=== PATIENT | female | born 1990 | race Caucasian/White ===

== ENCOUNTER 2016-08-05 | Outpatient (CLI) | payer OTHER ==
[2016-08-05 13:45] LABS: HEMOGLOBIN 10.3 gm/dl (12.3-15.3); RED BLOOD COUNT 3.72 M/UL (4.00-5.10); WHITE BLOOD COUNT 10.3 K/UL (4.5-11.0)
== END 2016-08-05 14:28 | disposition home or self-care (01) ==
PROVIDERS: Obstetrics & Gynecology
DX: O34.219 Maternal care for unspecified type scar from previous cesarean delivery (principal); Z3A.00 Weeks of gestation of pregnancy not specified
CPT/HCPCS: 36415; 80307; 81001; 85025; J7120

== ENCOUNTER 2016-08-06 09:15 | Inpatient (IN) | payer OTHER ==
[2016-08-07 03:13] LABS: HEMOGLOBIN 9.9 gm/dl (12.3-15.3)
[2016-08-09] MEDS ORDERED: IBUPROFEN600 MG PO (10:48)
[2016-08-09] MEDS ORDERED: NORCO 10-325 T1 EACH PO (10:49)
[2016-08-09] MEDS ORDERED: COLACE 100MG C100 MG PO (10:49)
== END 2016-08-09 17:39 | disposition home or self-care (01) | DRG 765 ==
LOC: OB 11:12
PROVIDERS: ADMIT Obstetrics & Gynecology
PROC: 3E0R3CZ (ICD-10-PCS; 2016-08-06)
PROC: 10D00Z1 Extraction of Products of Conception, Low, Open Approach (ICD-10-PCS; principal; 2016-08-06 14:30)
PROC: 3E0234Z Introduction of Serum, Toxoid and Vaccine into Muscle, Percutaneous Approach (ICD-10-PCS; 2016-08-07)
DX: O34.219 Maternal care for unspecified type scar from previous cesarean delivery (principal); O99.324 Drug use complicating childbirth; F11.20 Opioid dependence, uncomplicated; N85.8 Other specified noninflammatory disorders of uterus; O99.334 Smoking (tobacco) complicating childbirth; F17.200 Nicotine dependence, unspecified, uncomplicated; Z3A.39 39 weeks gestation of pregnancy; Z37.0 Single live birth; O99.344 Other mental disorders complicating childbirth; F32.9 Major depressive disorder, single episode, unspecified; F41.9 Anxiety disorder, unspecified; Z23 Encounter for immunization; Z79.899 Other long term (current) drug therapy; Z83.3 Family history of diabetes mellitus; Z82.49 Family history of ischemic heart disease and other diseases of the circulatory system; Z80.8 Family history of malignant neoplasm of other organs or systems; Z83.49 Family history of other endocrine, nutritional and metabolic diseases
CPT/HCPCS: 36415; 80307; 81001; 82800; 85014; 85018; 85025; 90715; C9113; J0690; J1885; J2270; J2274; J2550; J2590; J2765; J7050; J7120

== ENCOUNTER 2020-06-25 18:31 | Emergency (ER) | payer OTHER ==
[~2020-06-25 18:31] MED LIST: AMOXICILLIN500 MG PO; COLACE 100MG C100 MG PO; IBUPROFEN600 MG PO; NORCO 10-325 T1 EACH PO; PENVEE K 500 M500 MG PO
== END 2020-06-26 00:09 | disposition left against medical advice (07) ==
LOC: ER1 18:31
DX: K04.7 Periapical abscess without sinus (principal); R22.0 Localized swelling, mass and lump, head; Z53.21 Procedure and treatment not carried out due to patient leaving prior to being seen by health care provider

== ENCOUNTER → 2021-11-26 | Outpatient (CLI) | payer OTHER | LOC: KOH-I 15:47 | DX: M25.561 Pain in right knee (principal); M25.562 Pain in left knee | CPT/HCPCS: 73562 ==